=== PATIENT | female | born 1935 | race Caucasian/White ===

== ENCOUNTER 2020-01-01 17:28 | Observation (INO) | payer MEDICARE ==
[~2020-01-01] VITALS: Ht 162.6 cm; Wt 60.4 kg
--- NOTE | 2020-01-01 17:46 | PHYS DOC ---
General Adult EDM: Chief Complaint: CHEST PAIN HPI: HPI: The history was obtained from the patient. Patient is a 84-year-old female with PMH hypertension, prediabetic who presents with a chief complaint of chest pain and syncope. Patient states last night approximately 8 PM while sitting down she developed a substernal chest pressure. She states it was nonradiating. She states it felt as though she has something stuck in her esophagus but did not occur after eating. She states the symptoms lasted for several hours. She tried drinking water to alleviate the symptoms but this did not alleviate her symptoms. She states that she does not typically get exertional chest pain or s hortness of breath at baseline. Denies any history of coronary artery disease. Denies history of invasive cardiac testing. States that this morning her symptoms had resolved. She states this evening while walking her dog with her family member she had 3 episodes of lightheadedness causing syncope. She states she could feel her symptoms coming on. Denies any vomiting. Denies diaphoresis. Also reports that she is had a increasing cough over the past 2 days. Denies any known exposure to coronavirus. Denies objective fevers. Denies any chest pain at this time. No other complaints. Patient denies any history of immobilization greater than 48 hours, recent hospitalizations, recent surgery, recent trauma, , oral contraceptive usage, hormone replacement therapy, air travel greater than 8 hours, recent infectious disease, or general deterioration of their overall condition. (PATRIC SANCHEZ DO) Review of Systems: Review of Systems: Constitutional: Denies fever or chills. [] Eyes: Denies change in visual acuity. [] HENT: Denies nasal congestion or sore throat. [] Respiratory: Denies cough or shortness of breath. [] Cardiovascular: Positive for chest pain and syncope GI: Denies abdominal pain, nausea, vomiting, bloody stools or diarrhea. [] : Denies dysuria. [] Musculoskeletal: Denies back pain or joint pain. [] Integument: Denies rash. [] Neurologic: Denies headache, focal weakness or sensory changes. [] Endocrine: Denies polyuria or polydipsia. [] Lymphatic: Denies swollen glands. [] Psychiatric: Denies depression or anxiety. [] (PATRIC SANCHEZ DO) Heart Score: Risk Factors: Risk Factors: DM, Current or recent (<one month) smoker, HTN, HLP, family history of CAD, obesity. Risk Scores: Score 0 - 3: 2.5% MACE over next 6 weeks - Discharge Home Score 4 - 6: 20.3% MACE over next 6 weeks - Admit for Clinical Observation Score 7 - 10: 72.7% MACE over next 6 weeks - Early Invasive Strategies (PATRIC SANCHEZ DO) Physical Exam: PE: Constitutional: Well developed, well nourished, no acute distress, non-toxic appearance. [] HENT: Normocephalic, atraumatic, bilateral external ears normal, oropharynx moist, no oral exudates, nose normal. [] Eyes: PERRLA, EOMI, conjunctiva normal, no discharge. [] Neck: Normal range of motion, no tenderness, supple, no stridor. [] Cardiovascular:Heart rate regular rhythm, no murmur [] Lungs & Thorax: Bilateral breath sounds clear to auscultation [] Abdomen:soft, no tenderness, no masses, no pulsatile masses. [] Skin: Warm, dry, no erythema, no rash. [] Back: No tenderness, no CVA tenderness. [] Extremities: No tenderness, no cyanosis, no clubbing, ROM intact, no edema. [] Neurologic: Alert and oriented X 3, normal motor function, normal sensory function, no focal deficits noted. [] Psychologic: Affect normal, judgement normal, mood normal. [] (PATRIC SANCHEZ DO) EKG: EKG: [] EKG consistent with normal sinus rhythm. Ventricular rate of [address] depression noted in the inferior and lateral precordial leads. No acute ST segment elevation appreciated. No previous for comparison. Overall abnormal EKG. (PATRIC SANCHEZ DO) Radiology/Procedures: Radiology/Procedures: [] (PATRIC SANCHEZ DO) Course & Med Decision Making: Course & Med Decision Making Pertinent Labs and Imaging studies reviewed. (See chart for details) [] Patient is an 84-year-old female who presents with chief complaint of intermittent chest pain beginning last night. She does note 3 syncopal episodes prior to arrival. EKG does show ST depressions in the inferior and lateral precordial leads. At this time labs and imaging are pending. I have signed out the patient's emergency department care to Dr. Lennon. We discussed the history, physical exam findings, completed and pending laboratory results and imaging studies. We have also discussed the current treatment plan and expected clinical course. Please refer to chart for the patient's remaining emergency department course, final disposition, and clinical impression(s). (PATRIC SANCHEZ DO) Course & Med Decision Making Assumed care of patient at checkout from prior physician. Lab work is unremarkable, however patient has changes on EKG. I have discussed this with her son who is an EM physician. Will admit her at this time. (CAROLINE LENNON MD) Dragon Disclaimer: Dragon Disclaimer: This electronic medical record was generated, in whole or in part, using a voice recognition dictation system. (PATRIC SANCHEZ DO) Departure Departure Impression: Primary Impression: Chest pain Qualified Codes: R07.9 - Chest pain, unspecified Additional Impression: Syncope Qualified Codes: R55 - Syncope and collapse Disposition: ADMITTED INPATIENT Condition: STABLE Justicifation of Admission Dx: Justifications for Admission: Justification of Admission Dx: N/A (PATRIC SANCHEZ DO) Justification of Admission Dx: Yes (CAROLINE LENNON MD) PATRIC SANCHEZ DO Jan 01, 2020 17:46 CAROLINE LENNON MD Jan 01, 2020 21:31
[2020-01-01 18:22] LABS: BASO % 1 % (0-3); EOS % 0 % (0-3); HEMATOCRIT 38.6 % (36.0-47.0); HEMOGLOBIN 13.2 g/dL (12.0-15.5); LYMPH # 0.8 x10^3/uL (1.0-4.8); LYMPH % 14 % (24-48); MEAN CORPUSCULAR HEMOGLOBIN 30 pg (25-35); MEAN CORPUSCULAR HGB CONC 34 g/dL (31-37); MEAN CORPUSCULAR VOLUME 89 fL (79-100); MONO # 1.1 x10^3/uL (0.0-1.1); MONO % 18 % (0-9); NEUT # 4.2 x10^3/uL (1.8-7.7); NEUT % 68 % (31-73); PLATELET COUNT 226 x10^3/uL (140-400); RED BLOOD COUNT 4.34 x10^6/uL (3.50-5.40); RED CELL DISTRIBUTION WIDTH 13.7 % (11.5-14.5); WHITE BLOOD COUNT 6.1 x10^3/uL (4.0-11.0)
[2020-01-01 18:30] LABS: CALCIUM 8.9 mg/dL (8.5-10.1); CREATININE 1.2 mg/dL (0.6-1.0); GFR 42.9; POTASSIUM 3.8 mmol/L (3.5-5.1)
--- NOTE | 2020-01-01 18:44 | RAD ---
CHEST AP ONLY History: Reason: CP / Spl. Instructions: / History: Comparison: None. Findings: No consolidation or pleural effusion. Normal heart size. No pneumothorax. Right upper lung calcified pulmonary nodule, likely prior granulous disease. Impression: 1. No acute cardiopulmonary process. Electronically signed by: Jesus Richey DO (01/01/2020 6:41 PM) [facility] [place]
[2020-01-01 22:40] VITALS: BP 125/99
--- NOTE | 2020-01-01 22:40 | NUR ---
ADMISSION NOTE Pt admitted to room 250 via ER cart. Pt ambulated to bed with standby assist x1. Pt assisted with changing gown/pants and placing cardiac monitoring. Pt given written and verbal hospital information and discussed plan of care. Pt history and assessment completed. Pt states she did fall yesterday, explained to pt about being a fall risk, and needing to use the call light before getting up out of bed for safety purposes. Pt vu. Pt doesn't recall the names of her home medications, states taking 4 in the morning and 4 at night. Pt also states that she does take diabetes medication, but does not check her blood sugars on a regular basis. Pt given call light and explained use, pt vu. Bed alarm on. Will monitor.
[2020-01-02 03:02] VITALS: BP 179/77
[2020-01-02 07:00] VITALS: BP 136/73
--- NOTE | 2020-01-02 10:36 | PDOC2 ---
CONSULT Date of Consult Date of Consult DATE: 01/02/20 TIME: 10:36 Reason for Consult Reason for Consult: Chest pain and near syncope Referring Physician Referring Physician: Dr. Bangura Identification/Chief Complaint Chief Complaint Chest pain and near syncope Source Source: Chart review, Patient History of Present Illness Reason for Visit: 84-year-old female without any previous cardiac history apparently had an episode of retrosternal chest pain day before yesterday and felt like something was stuck in her esophagus. This was relieved after she drank some water. Yesterday morning she felt good and went for a walk with her daughter for 1 to 1-1/2 hours. When she was close to her home she had dizziness, lightheadedness and near syncope and had to sit down. When she stood up, she had similar sympto ms and this happened 2 more times and she presented to ED. She denied any marty loss of consciousness. She denied any previous history of syncope or near syncope. She also denied any orthopnea/PND or palpitations. Past Medical History Past Medical History Hypertension Prediabetes Family History Family History Hypertension Social History Social History Patient denied any smoking, alcohol or drug use Current Problem List Problem List Problems Medical Problems: (1) Chest pain Status: Acute (2) Syncope Status: Acute Allergies Allergies: Coded Allergies: No Known Drug Allergies (Unverified , 01/01/20) ROS PSYCHOLOGICAL ROS: No: Hallucinations Eyes: No Loss of vision HEENT: No: Epistaxis Respiratory: No: Hemoptysis Cardiovascular: yes Chest Pain Gastrointestinal: No Vomiting, No Diarrhea Genitourinary: No Hematuria Neurological: Yes Other (Near syncope) Skin: No Rash Physical Exam General: Alert, Oriented X3 HEENT: Atraumatic Lungs: Clear to auscultation Heart: Regular rate Abdomen: Soft Extremities: No edema Neuro: Normal gait, Normal speech Psych/Mental Status: Mental status NL, Mood NL Vitals VITALS Vital Signs Date Time Temp Pulse Resp B/P (MAP) Pulse Ox O2 Delivery O2 Flow Rate FiO2 01/02/20 08:05 Room Air 01/02/20 07:00 98.2 66 16 136/73 (94) 96 98.2 Labs Labs Laboratory Tests Test 01/01/20 18:00 01/02/20 07:38 White Blood Count 6.1 x10^3/uL (4.0-11.0) Red Blood Count 4.34 x10^6/uL (3.50-5.40) Hemoglobin 13.2 g/dL (12.0-15.5) Hematocrit 38.6 % (36.0-47.0) Mean Corpuscular Volume 89 fL (79-100) Mean Corpuscular Hemoglobin 30 pg (25-35) Mean Corpuscular Hemoglobin Concent 34 g/dL (31-37) Red Cell Distribution Width 13.7 % (11.5-14.5) Platelet Count 226 x10^3/uL (140-400) Neutrophils (%) (Auto) 68 % (31-73) Lymphocytes (%) (Auto) 14 % (24-48) Monocytes (%) (Auto) 18 % (0-9) Eosinophils (%) (Auto) 0 % (0-3) Basophils (%) (Auto) 1 % (0-3) Neutrophils # (Auto) 4.2 x10^3/uL (1.8-7.7) Lymphocytes # (Auto) 0.8 x10^3/uL (1.0-4.8) Monocytes # (Auto) 1.1 x10^3/uL (0.0-1.1) Eosinophils # (Auto) 0.0 x10^3/uL (0.0-0.7) Basophils # (Auto) 0.0 x10^3/uL (0.0-0.2) Sodium Level 138 mmol/L (136-145) Potassium Level 3.8 mmol/L (3.5-5.1) Chloride Level 102 mmol/L (98-107) Carbon Dioxide Level 26 mmol/L (21-32) Anion Gap 10 (6-14) Blood Urea Nitrogen 16 mg/dL (7-20) Creatinine 1.2 mg/dL (0.6-1.0) Estimated GFR (Cockcroft-Gault) 42.9 Glucose Level 169 mg/dL (70-99) Calcium Level 8.9 mg/dL (8.5-10.1) Magnesium Level 2.2 mg/dL (1.8-2.4) Troponin I Quantitative < 0.017 ng/mL (0.000-0.055) Glucose (Fingerstick) 89 mg/dL (70-99) Laboratory Tests Test 01/01/20 18:00 01/02/20 07:38 White Blood Count 6.1 x10^3/uL (4.0-11.0) Red Blood Count 4.34 x10^6/uL (3.50-5.40) Hemoglobin 13.2 g/dL (12.0-15.5) Hematocrit 38.6 % (36.0-47.0) Mean Corpuscular Volume 89 fL (79-100) Mean Corpuscular Hemoglobin 30 pg (25-35) Mean Corpuscular Hemoglobin Concent 34 g/dL (31-37) Red Cell Distribution Width 13.7 % (11.5-14.5) Platelet Count 226 x10^3/uL (140-400) Neutrophils (%) (Auto) 68 % (31-73) Lymphocytes (%) (Auto) 14 % (24-48) Monocytes (%) (Auto) 18 % (0-9) Eosinophils (%) (Auto) 0 % (0-3) Basophils (%) (Auto) 1 % (0-3) Neutrophils # (Auto) 4.2 x10^3/uL (1.8-7.7) Lymphocytes # (Auto) 0.8 x10^3/uL (1.0-4.8) Monocytes # (Auto) 1.1 x10^3/uL (0.0-1.1) Eosinophils # (Auto) 0.0 x10^3/uL (0.0-0.7) Basophils # (Auto) 0.0 x10^3/uL (0.0-0.2) Sodium Level 138 mmol/L (136-145) Potassium Level 3.8 mmol/L (3.5-5.1) Chloride Level 102 mmol/L (98-107) Carbon Dioxide Level 26 mmol/L (21-32) Anion Gap 10 (6-14) Blood Urea Nitrogen 16 mg/dL (7-20) Creatinine 1.2 mg/dL (0.6-1.0) Estimated GFR (Cockcroft-Gault) 42.9 Glucose Level 169 mg/dL (70-99) Calcium Level 8.9 mg/dL (8.5-10.1) Magnesium Level 2.2 mg/dL (1.8-2.4) Troponin I Quantitative < 0.017 ng/mL (0.000-0.055) Glucose (Fingerstick) 89 mg/dL (70-99) Assessment/Plan Assessment/Plan 1. Near syncope, 3 episodes yesterday. She denied any loss of consciousness. Telemetry did not show any significant arrhythmias. Check orthostatics. Plan outpatient 2D echo and event monitor recording. 2. Chest pain with atypical features, most probably GI etiology. Myocardial infarction has been ruled out. Plan ischemic evaluation outpatient. 3. Accelerated hypertension: Better controlled since admission Thank you for your consultation CK ESQUEDA MD Jan 02, 2020 10:36
[2020-01-02] MEDS ORDERED: TAFL1DRO EACHEYE (10:51)
[2020-01-02] MEDS ORDERED: LISI-334 PO (10:51)
[2020-01-02] MEDS ORDERED: BRIM5DRO2 OP (10:51)
[2020-01-02] MEDS ORDERED: DORZ10DR7 EACHEYE (10:51)
[2020-01-02] MEDS ORDERED: METO50TA4 PO (10:51)
[2020-01-02 11:00] VITALS: BP 149/78
[2020-01-02] MEDS ORDERED: LISINOPRIL 20 MG TABLET PO SCH (12:00)
[2020-01-02] MEDS ORDERED: METOPROLOL SUCC 24HR ER 50 MG TAB.ER.24H. PO SCH (12:00)
--- NOTE | 2020-01-02 12:12 | PDOC ---
[employer] PROGRESS NOTE Date of Service DOS: DATE: 01/02/20 TIME: 12:08 Chief Complaint Chief Complaint syncope History of Present Illness History of Present Illness 01/02/2020 Pt seen and examined. DOMINGO RN. Discussed decreasing exercise routine,wait for cardiology to release back to normal. Plan to DC home. Vitals/I&O Vitals/I&O: Vital Signs Date Time Temp Pulse Resp B/P (MAP) Pulse Ox O2 Delivery O2 Flow Rate FiO2 01/02/20 11:00 98.0 58 16 149/78 (101) 95 Room Air 98.0 I & O 01/01/20 01/01/20 01/02/20 15:00 23:00 07:00 Intake Total 120 ml Balance 120 ml Physical Exam General: Alert, Oriented X3 Heart: Regular rate, Normal S1, Normal S2 Lungs: Clear Abdomen: Normal bowel sounds, Soft Extremities: No clubbing, No cyanosis Skin: No rashes, No significant lesion Labs Labs: Laboratory Tests Test 01/01/20 18:00 01/02/20 07:38 01/02/20 11:58 White Blood Count 6.1 x10^3/uL (4.0-11.0) Red Blood Count 4.34 x10^6/uL (3.50-5.40) Hemoglobin 13.2 g/dL (12.0-15.5) Hematocrit 38.6 % (36.0-47.0) Mean Corpuscular Volume 89 fL (79-100) Mean Corpuscular Hemoglobin 30 pg (25-35) Mean Corpuscular Hemoglobin Concent 34 g/dL (31-37) Red Cell Distribution Width 13.7 % (11.5-14.5) Platelet Count 226 x10^3/uL (140-400) Neutrophils (%) (Auto) 68 % (31-73) Lymphocytes (%) (Auto) 14 % (24-48) Monocytes (%) (Auto) 18 % (0-9) Eosinophils (%) (Auto) 0 % (0-3) Basophils (%) (Auto) 1 % (0-3) Neutrophils # (Auto) 4.2 x10^3/uL (1.8-7.7) Lymphocytes # (Auto) 0.8 x10^3/uL (1.0-4.8) Monocytes # (Auto) 1.1 x10^3/uL (0.0-1.1) Eosinophils # (Auto) 0.0 x10^3/uL (0.0-0.7) Basophils # (Auto) 0.0 x10^3/uL (0.0-0.2) Sodium Level 138 mmol/L (136-145) Potassium Level 3.8 mmol/L (3.5-5.1) Chloride Level 102 mmol/L (98-107) Carbon Dioxide Level 26 mmol/L (21-32) Anion Gap 10 (6-14) Blood Urea Nitrogen 16 mg/dL (7-20) Creatinine 1.2 mg/dL (0.6-1.0) Estimated GFR (Cockcroft-Gault) 42.9 Glucose Level 169 mg/dL (70-99) Calcium Level 8.9 mg/dL (8.5-10.1) Magnesium Level 2.2 mg/dL (1.8-2.4) Troponin I Quantitative < 0.017 ng/mL (0.000-0.055) Glucose (Fingerstick) 89 mg/dL (70-99) 175 mg/dL (70-99) Review of Systems Review of Systems: No weakness. No fever. Assessment and Plan Assessmemt and Plan Problems Medical Problems: (1) Chest pain Status: Acute (2) Syncope Status: Acute Assessment: Syncope. Chest pressure. Hx HTN. Plan: DC to home. Out patient stress test with Dr. Lara. Continue Home meds. Decrease daily walks till cardiology evaluation. Appreciate subspecialty input. Comment Review of Relevant I have reviewed the following items marta (where applicable) has been applied. Justifications for Admission Other Justification SHIRA KELSEY III DO Jan 02, 2020 12:11
[2020-01-02 12:55] VITALS: BP_SYST 110; BP_SYST 135; BP_SYST 155; BP_DIAS 70; BP_DIAS 75
[2020-01-02] MEDS ORDERED: IV NORMAL SALINE 500ML BAG 500 ML IV ONE (14:45)
[2020-01-02 15:00] VITALS: BP 146/66
--- NOTE | 2020-01-02 16:30 | NUR ---
Discharge instructions given to patient regarding follow up appointment with Dr. Lara. His office will be scheduling outpatient test. Education given over syncope and safety/fall management. Pt verbalizes understanding.
--- NOTE | 2020-01-03 13:23 | DS ---
DATE OF DISCHARGE: 01/02/2020 ADMISSION DIAGNOSIS: Syncope. DISCHARGE DIAGNOSIS: Resolving syncope. HOSPITAL COURSE: The patient is a pleasant 84-year-old female who was walking 1-1/2 miles a day, had a syncopal episode. She was admitted. We consulted Cardiology, did serial enzymes, serial EKGs, echocardiogram. Basically, she is at her baseline. We discharged home. We are going to do an outpatient stress test. DISPOSITION: Home. ACTIVITY: As tolerated. DIET: Low sodium. MEDICATIONS: Please see the MRAD. TOTAL TIME: 34 minutes. GERALDINEL Rangel KELSEY DO DR: CHRISTY/scar JOB#: [id number] / [id number]
--- NOTE | 2020-01-04 08:06 | EKG ---
[facility] [address] [place] [address] Test Date: 2020-01-01 Test Time: 17:42:26 Pat Name: JUNE KING Department: Room: Gender: F Food Counter Attendant: : 1935 Requested By: PATRIC SANCHEZ Order Number: [id number] Reading MD: Measurements Intervals Haskell Rate: 68 P: 42 WI: 162 QRS: 55 QRSD: 82 T: 49 QT: 408 QTc: 439 Interpretive Statements SINUS RHYTHM S1,S2,S3 PATTERN NO SPECIFIC ECG ABNORMALITIES RI6.02 No previous ECG available for comparison
== END 2020-01-02 16:50 | disposition home or self-care (01) ==
LOC: ER 17:28 → 2 SOUTH 21:32
PROVIDERS: ADMIT Internal Medicine; ATTEND Internal Medicine
DX: R07.89 Other chest pain (principal); R55 Syncope and collapse; I10 Essential (primary) hypertension; R42 Dizziness and giddiness
CPT/HCPCS: 36415; 71045; 80048; 82962; 83735; 84484; 85025; 99284; G0378; J7040; 93005; G0379

== ENCOUNTER → 2020-01-28 | Outpatient (CLI) | payer MEDICARE, OTHER ==
[2020-01-02 15:00] VITALS: BP 146/66
[~2020-01-28] MED LIST: BRIM5DRO2 OP; DORZ10DR7 EACHEYE; LISI-334 PO; METO50TA4 PO; REGADENOSON 0.4 MG/5 ML DISP.SYRIN. IV ONE; TAFL1DRO EACHEYE
--- NOTE | 2020-01-28 16:41 | CARD ---
MR#: [id number] Date of Study: 01/28/2020 Ordering Physician: CK ESQUEDA, Referring Physician: CK ESQUEDA, Tech: Francine Toro RDCS APPROVED REPORT EXAM: Two-dimensional and M-mode echocardiogram with Doppler and color Doppler. Other Information Quality : Good INDICATION Chest Pain Near Syncope 2D DIMENSIONS RVDd2.5 (2.9-3.5cm)Left Atrium(2D)3.5 (1.6-4.0cm) IVSd0.9 (0.7-1.1cm)Aortic Root(2D)2.6 (2.0-3.7cm) LVDd4.6 (3.9-5.9cm)LVOT Diameter2.1 (1.8-2.4cm) PWd0.9 (0.7-1.1cm)LVDs2.7 (2.5-4.0cm) FS (%) 30.0 %SV73.7 ml LVEF(%)60.0 (>50%) Aortic Valve AoV Peak Jerry.130.3cm/sAoV VTI28.9cm AO Peak GR.6.8mmHgLVOT Peak Jerry.84.6cm/s AO Mean GR.4mmHgAVA (VMAX)2.24cm2 MARIUSZ (VTI)2.30cm2 Mitral Valve MV E Hjajrzec44.1cm/sMV E Peak Gr.7mmHg MV DECEL [id number] A Tvagmbev906.1cm/s MV E Mean Gr.3mmHgE/A Ratio0.5 Tricuspid Valve TR P. Urrbblso275vp/sRAP GWVBZDZM6qsOb TR Peak Gr.25wuWeYBVM94srNl Pulmonary Vein S1 Fzfjdgis52.5cm/sD2 Yxdwpsty83.3cm/s LEFT VENTRICLE The left ventricle is normal size. There is normal left ventricular wall thickness. The left ventricu lar systolic function is normal and the ejection fraction is within normal range. The Ejection Fracti on is 55-60%. There is normal LV segmental wall motion. Transmitral Doppler flow pattern is Grade I-a bnormal relaxation pattern. RIGHT VENTRICLE The right ventricle is normal size. The right ventricular systolic function is normal. ATRIA The left atrium size is normal. The right atrium size is normal. The atrial septum is aneurysmal but no ASD or PDA is visualized. AORTIC VALVE The aortic valve is calcified but opens well. Doppler and Color Flow revealed no significant aortic r egurgitation. There is no significant aortic valvular stenosis. MITRAL VALVE The mitral valve is calcified but opens well. Mitral annular calcification is mild. A mitral valve pr olapse is present involving the posterior mitral valve leaflet. There is no mitral valve stenosis. Do ppler and Color-flow revealed mild mitral regurgitation. TRICUSPID VALVE The tricuspid valve is normal in structure and function. Doppler and Color Flow revealed trace tricus pid regurgitation. The PA pressure was estimated at 28 mmHg. There is no tricuspid valve stenosis. PULMONIC VALVE The pulmonary valve is normal in structure and function. Doppler and Color Flow revealed mild pulmoni c valvular regurgitation. There is no pulmonic valvular stenosis. GREAT VESSELS The aortic root is normal in size. 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 The IVC is normal in size and collapses >50% with inspiration. PERICARDIAL EFFUSION There is no evidence of significant pericardial effusion. Critical Notification Critical Value: No <Conclusion> The left ventricle is normal size. The left ventricular systolic function is normal and the ejection fraction is within normal range. The Ejection Fraction is 55-60%. Doppler and Color Flow revealed no significant aortic regurgitation. There is no significant aortic valvular stenosis. Doppler and Color-flow revealed mild mitral regurgitation. Doppler and Color Flow revealed trace tricuspid regurgitation. The PA pressure was estimated at 28 mmHg. 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 Signed by : Josué Cobb MD Electronically Approved : 01/28/2020 16:41:25
--- NOTE | 2020-01-28 17:00 | RAD ---
MR#: [id number] Date of Study: 01/28/2020 Ordering Physician: CK ESQUEDA, Referring Physician: HAKEEM TSE Tech: DERRICK Meek APPROVED REPORT Test Type: Pharmacological Stress Nurse/Tech: Dorian Andino RN Test Indications: syncope Cardiac History: HTN, DM Medications: See Electronic Medical Record Medical History: See Electronic Medical Record Resting ECG: SR Resting Heart Rate: 64 bpm Resting Blood Pressure: 140/60mmHg Pretest Chest Pain: None Nurse/Tech Notes Lungs CTA, S1S2 Consent: The procedure was explained to the patient in lay terms. Informed consent was witnessed. Jarrett eout was entered into [employer]. History and Stress Test performed by LOVELY Patel, PLACIDO (R) (N) Pharm. Details Pharmacologic stress testing was performed using 0.4mg per 5ml of regadenoson given intravenously ove r 7-10 seconds. Stress Symptoms No chest pain or symptoms. POST EXERCISE Reason for Termination: Infusion complete Max HR: 88 bpm Max Blood Pressure: 190/77mmHg Blood Pressure response to exercise: Normal blood pressure response during stress. Heart Rate response to exercise: normal response Chest Pain: No. Arrhythmia: No. ST Change: No. INTERPRETATION Stress EKG Conclusion: The resting EKG shows a sinus rhythm with nonspecific ST segment depression. The stress EKG shows no significant changes from baseline. No EKG evidence of stress-induced ischemia. Imaging Protocol IMAGE PROTOCOL: Rest Tc-99m/stress Tc-99m 1 day Rest: Stress: Viability: Radiopharm.Tc99m BpfhsbiflGd15i Sestamibi Hqcy54hLo 33mCi Duration 15min. 10min. Img Date 01/28/2020 01/28/2020 Rest Admin Site:IV - Right AntecubitalAdministrator:LOVELY Patel, PLACIDO (R)(N) Stress Admin Site: IV - Right AntecubitalAdministrator: LOVELY Patel, PLACIDO (R)(N) STRESS DATA End Diast. Vol.62.0mlAv. Heart Rate65.0bpm End Syst. Vol.10.0mlCO Index BSA0.0L/min Myocardial Ixgy997.0gEject. Lsrgmvvv50.0% Stress Rates Pk. Fill Rate2.92EDV/secLVtime Pk. Fill 256.18msec Pk. Empty Rate4.09ESV/secLVtime Pk. Gkrpg540.59msec /3 Pk. Fill1.14EDV/sec Stress Scores Regional WT0.00Summed WT0.00 Regional WM0.00Summed WM0.00 LV Perfusion The stress scans showed no significant defects. The rest scans showed no significant defects. Nuclear imaging shows no reversible ischemia or infarct. Wall Motion Left ventricular systolic function is normal with no regional wall motion abnormalities, and ejection fraction of greater than 70% and a TID of 1.36. LV Perf. Quant 17 Seg. SSS0.00 17 Seg. SRS0.00 17 Seg. SDS0.00 Stress Defect Extent (% LAD)0.00Rest Defect Extent (% LAD)0.00Rev. Defect Extent (% LAD)0.00 Stress Defect Extent (% LCX) 0.00Rest Defect Extent (% LCX)0.00Rev. Defect Extent (% LCX)0.00 Stress Defect Extent (% RCA)0.00Rest Defect Extent (% RCA)0.00Rev. Defect Extent (% RCA)0.00 Stress Defect Extent (% ZOE)0.00Rest Defect Extent (% ZOE)0.00Rev. Defect Extent (% ZOE)0.00 Conclusion 1. Abnormal resting EKG but no EKG evidence of stress-induced ischemia. 2. Nuclear imaging shows no reversible ischemia or infarct. 3. Normal left ventricular systolic function with an ejection fraction of greater than 70%. 4. Moderately low to low risk Lexiscan nuclear stress test. Signed by : Josué Cobb MD Electronically Approved : 01/28/2020 17:00:12
== END ==
LOC: NM 08:29
PROVIDERS: ATTEND Internal Medicine Cardiovascular Disease
DX: I08.0 Rheumatic disorders of both mitral and aortic valves (principal); I10 Essential (primary) hypertension
CPT/HCPCS: 78452; 93017; 93306; A9500; J2785

== ENCOUNTER → 2021-05-01 | Outpatient (CLI) | payer OTHER ==
[~2021-05-01] MED LIST changes: -LISI-334 PO; +LISI20TA18 PO; -REGADENOSON 0.4 MG/5 ML DISP.SYRIN. IV ONE
--- NOTE | 2021-05-01 16:49 | CARD ---
MR#: [id number] Date of Study: 05/01/2021 Ordering Physician: CK ESQUEDA, Referring Physician: CK ESQUEDA Tech: Mima [place] [facility] APPROVED REPORT EXAM: Two-dimensional and M-mode echocardiogram with Doppler and color Doppler. Other Information Quality : AverageHR: 62bpm Rhythm : NSR INDICATION Hypertension/HCVD RISK FACTORS Hypertension 2D DIMENSIONS RVDd2.9 (2.9-3.5cm)Left Atrium(2D)3.5 (1.6-4.0cm) IVSd1.1 (0.7-1.1cm)Aortic Root(2D)2.6 (2.0-3.7cm) LVDd4.0 (3.9-5.9cm)LVOT Diameter1.9 (1.8-2.4cm) PWd1.1 (0.7-1.1cm)LVDs3.0 (2.5-4.0cm) FS (%) 24.7 %SV35.1 ml Aortic Valve AoV Peak Jerry.129.9cm/sAoV VTI30.6cm AO Peak GR.6.8mmHgLVOT Peak Jerry.94.1cm/s AO Mean GR.3mmHgAVA (VMAX)1.97cm2 Mitral Valve MV E Etiopepf28.8cm/sMV DECEL [id number] MV A Sixlkait444.0cm/sE/A Ratio0.7 Pulmonary Valve PV Peak Gmdxvpmo64.7cm/s Tricuspid Valve TR P. Gmcbmdds173js/sTR Peak Gr.29mmHg LEFT VENTRICLE The left ventricle is normal size. There is mild concentric left ventricular hypertrophy. The left ve ntricular systolic function is low normal. LV ejection fraction is estimated at 50%. There is normal LV segmental wall motion. Transmitral Doppler flow pattern is Grade I-abnormal relaxation pattern. RIGHT VENTRICLE The right ventricle is normal size. There is normal right ventricular wall thickness. The right ventr icular systolic function is normal. ATRIA The left atrium size is normal. The right atrium size is normal. The interatrial septum is intact wit h no evidence for an atrial septal defect or patent foramen ovale as noted on 2-D or Doppler imaging. AORTIC VALVE The aortic valve is mildly thickened but opens well. Doppler and Color Flow revealed no significant a ortic regurgitation. There is no significant aortic valvular stenosis. MITRAL VALVE The mitral valve is normal in structure and function. There is no evidence of mitral valve prolapse. There is no mitral valve stenosis. Doppler and Color-flow revealed mild mitral regurgitation. TRICUSPID VALVE The tricuspid valve is normal in structure and function. Doppler and Color Flow revealed mild tricusp id regurgitation. There is no tricuspid valve stenosis. PULMONIC VALVE The pulmonary valve is normal in structure and function. Doppler and Color Flow revealed mild pulmoni c valvular regurgitation. GREAT VESSELS The aortic root is normal in size. The ascending aorta is normal in size. The IVC is normal in size a nd collapses >50% with inspiration. PERICARDIAL EFFUSION There is no evidence of significant pericardial effusion. Critical Notification Critical Value: No <Conclusion> The left ventricle is normal size. The left ventricular systolic function is low normal. LV ejection fraction is estimated at 50%. There is mild concentric left ventricular hypertrophy. Doppler and Color Flow revealed no significant aortic regurgitation. There is no significant aortic valvular stenosis. Doppler and Color-flow revealed mild mitral regurgitation. Doppler and Color Flow revealed mild tricuspid regurgitation. Signed by : Josué Cobb MD Electronically Approved : 05/01/2021 16:48:45
== END ==
LOC: ECHO 10:14
PROVIDERS: ATTEND Internal Medicine Cardiovascular Disease
DX: I08.8 Other rheumatic multiple valve diseases (principal); R55 Syncope and collapse; I10 Essential (primary) hypertension
CPT/HCPCS: 93306; C8929